=== PATIENT | male | born 1975 | race Two or more races ===

== ENCOUNTER 2020-05-07 11:18 | Emergency (ER) | payer MEDICAID, OTHER ==
[~2020-05-07] VITALS: Ht 175.3 cm; Wt 68.0 kg
[2020-05-07 11:20] VITALS: BP 104/56
[2020-05-07] MEDS ORDERED: FLUORESCEIN SOD OPTH TEST STRIP OP ONE (11:45)
[2020-05-07] MEDS ORDERED: TETRACAINE HCL 0.5% OPTH(EYE) SOLN 4ML LEFTEYE ONE (11:45)
== END 2020-05-07 12:51 | disposition home or self-care (01) ==
LOC: ER 11:18
DX: T15.02XA Foreign body in cornea, left eye, initial encounter (principal); X58.XXXA Exposure to other specified factors, initial encounter; Y93.89 Activity, other specified; Y92.89 Other specified places as the place of occurrence of the external cause; Y99.8 Other external cause status
CPT/HCPCS: 65222